=== PATIENT | male | born 1950 | race Caucasian/White ===

== ENCOUNTER 2017-07-05 13:03 | Day surgery (SDC) | payer OTHER, MEDICARE ==
[~2017-07-05] VITALS: Ht 172.7 cm; Wt 96.0 kg
[~2017-07-05 13:03] MED LIST: AMIT25 PO; AMLO5 PO; ASPI325 PO; ATOR40TA PO; Aspir 8181 MG PO; BUTASPCAFT PO; CEPH500 PO; Cytomel5 MCG PO; DICY20 PO; ESCI20; FAMO20 PO; FISH OIL 1,0001 EAC2 PO; Flovent Diskus50 MCG; GEMF600 PO; GUAIFENESIN DM1 EACH PO; HYDACE10B PO; HYDACE5 PO; HYDCHL12.5 PO; IBUP600 PO; INSULANI SC; INSULANI SUBQ; INSULANPEN SC; LEVSOD25 PO; LEVSOD50 PO; LISI20 PO; LISI5 PO; METF500C PO; METO50 PO; Mobic7.5 MG PO; NEBI10 PO; NEBI5 PO; NITR.6SL SL; Novolog Fl100 UNIT/1 INJ; OMEG1CAP30; PRAM.125 PO; RANO500T PO; ROSU10TA PO; TEMA30 PO; TESTTP TOP; VENL150ER PO; VITAMIN B12-FO1 EACH PO
[2017-07-05] MEDS ORDERED: OXYB5 PO (13:44)
[2017-07-05] MEDS ORDERED: LIDO5TO TOP (13:45)
[2017-07-05] MEDS ORDERED: Depo-Testo100 MG/1 M IM (13:46)
== END 2017-07-05 23:23 | disposition home or self-care (01) ==
LOC: MHTC 13:03
PROC: 065Q3ZZ Destruction of Left Saphenous Vein, Percutaneous Approach (ICD-10-PCS; principal; 2017-07-05)
DX: E11.51 Type 2 diabetes mellitus with diabetic peripheral angiopathy without gangrene (principal); I87.2 Venous insufficiency (chronic) (peripheral); I10 Essential (primary) hypertension
CPT/HCPCS: 36475; 82947; 99152; C1769; C1888; C1894; J1644; J2250; J3010; J7040; J7042

== ENCOUNTER 2019-01-22 23:44 | Observation (INO) | payer OTHER, MEDICARE ==
[~2019-01-22] VITALS: Ht 177.8 cm; Wt 95.7 kg
[~2019-01-22 23:44] MED LIST changes: -AMLO5 PO; -Cytomel5 MCG PO; -HYDCHL12.5 PO; -IBUP600 PO; -INSULANPEN SC; -LEVSOD50 PO; -LISI20 PO; -METF500C PO; -NITR.6SL SL; -ROSU10TA PO
[2019-01-23 00:18] LABS: BASOPHILS ABSOLUTE AUTO 0.05 K/mm3 (0.00-0.23); BASOPHILS PERCENT AUTO 1 % (0-2); EOSINOPHILS ABSOLUTE AUTO 0.39 K/mm3 (0.00-0.68); EOSINOPHILS PERCENT AUTO 5 % (0-6); Hematocrit 44.7 % (37.0-53.0); Hemoglobin 14.8 g/dL (13.5-17.5); IMMATURE GRAN ABSOLUTE AUTO 0.02 K/mm3 (0.00-0.10); IMMATURE GRAN PERCENT AUTO 0 % (0-1); LYMPHOCYTES ABSOLUTE AUTO 2.38 K/mm3 (0.84-5.20); LYMPHOCYTES PERCENT AUTO 29 % (21-46); MONOCYTES PERCENT AUTO 15 % (4-13); Mean Corpuscular HGB Conc 33.1 g/dL (31.5-36.5); Mean Corpuscular Volume 85 fL (80-100); Mean Platelet Volume 11.3 fL (9.1-12.4); NEUTROPHILS ABSOLUTE AUTO 4.08 K/mm3 (1.96-9.15); NEUTROPHILS PERCENT AUTO 50 % (41-73); Platelet Count 237 K/mm3 (150-400); RDW Coefficient Variation 14.1 % (11.7-14.2); RDW Standard Deviation 43.8 fL (35.1-46.3); Red Blood Cell Count 5.28 M/mm3 (4.30-5.90); White Blood Cell Count 8.12 K/mm3 (4.00-11.30)
[2019-01-23 00:32] LABS: Alanine Aminotransfer (ALT/SGP 42 U/L (12-78); Albumin, Blood 3.9 g/dL (3.4-5.0); Albumin/Globulin Ratio 1.1 (0.8-1.8); Alk Phos 83 U/L (50-136); Anion Gap 8 mmol/L (6-16); Aspartate Aminotrans (AST/SGOT 34 U/L (12-37); Bilirubin, Total 0.4 mg/dL (0.1-1.0); Blood Urea Nitrogen 13 mg/dL (8-24); Bun/Creatinine Ratio 13.7 (12.0-20.0); CO2, Blood 25 mmol/L (21-32); Calcium, Blood 8.7 mg/dL (8.5-10.1); Chloride, Blood 104 mmol/L (98-108); Creatinine, Blood 0.95 mg/dL (0.60-1.20); Globulin, Blood 3.6 g/dL (2.2-4.0); Glomerular Filtration Rate >60 (60-); Glucose, Blood 94 mg/dL (70-99); Potassium, Blood 3.8 mmol/L (3.5-5.5); Sodium, Blood 137 mmol/L (136-145); Total Protein, Blood 7.5 g/dL (6.4-8.2); Troponin I <0.015 ng/mL (0.000-0.040)
[2019-01-23 01:14] LABS: Free Thyroxine 0.85 ng/dL (0.70-1.60)
[2019-01-23 01:16] LABS: Thyroid Stimulating Hormone 0.634 uIU/mL (0.360-4.800)
--- NOTE | 2019-01-23 06:20 | NUR ---
01/23/19 0615 RESTING IN BED WITHOUT C/O DISCOMFORT OR S/S AT THIS TIME. VITALS AND HEART RHYTHM STABLE. TAKING ORAL FLUIDS WELL. NO VOIDING YET BUT STATES HE VOIDED IN ER BEFORE COMING TO FLOOR.
[2019-01-23 08:04] LABS: Hematocrit 45.1 % (37.0-53.0); Hemoglobin 14.7 g/dL (13.5-17.5); Mean Corpuscular HGB 27.5 pg (26.0-34.0); Mean Corpuscular HGB Conc 32.6 g/dL (31.5-36.5); Mean Corpuscular Volume 85 fL (80-100); Mean Platelet Volume 11.2 fL (9.1-12.4); Platelet Count 227 K/mm3 (150-400); RDW Standard Deviation 43.1 fL (35.1-46.3); Red Blood Cell Count 5.34 M/mm3 (4.30-5.90); White Blood Cell Count 7.19 K/mm3 (4.00-11.30)
[2019-01-23 08:21] LABS: Alanine Aminotransfer (ALT/SGP 40 U/L (12-78); Albumin, Blood 3.7 g/dL (3.4-5.0); Albumin/Globulin Ratio 1.1 (0.8-1.8); Alk Phos 60 U/L (50-136); Anion Gap 7 mmol/L (6-16); Aspartate Aminotrans (AST/SGOT 25 U/L (12-37); Bilirubin, Total 0.5 mg/dL (0.1-1.0); Blood Urea Nitrogen 11 mg/dL (8-24); Bun/Creatinine Ratio 11.6 (12.0-20.0); CO2, Blood 27 mmol/L (21-32); Calcium, Blood 8.7 mg/dL (8.5-10.1); Chloride, Blood 106 mmol/L (98-108); Creatinine, Blood 0.95 mg/dL (0.60-1.20); Globulin, Blood 3.3 g/dL (2.2-4.0); Glomerular Filtration Rate >60 (60-); Glucose, Blood 72 mg/dL (70-99); Potassium, Blood 3.8 mmol/L (3.5-5.5); Sodium, Blood 140 mmol/L (136-145)
[2019-01-23 08:23] LABS: CPK Creatine Kinase 98 U/L (39-308); Troponin I <0.015 ng/mL (0.000-0.040)
--- NOTE | 2019-01-23 14:48 | NUR ---
Upon receiving a spiritual care referral, I visited patient. I began talking with patient about his career and family then patient's doctor came in, visit cut short and no discussion on the topic of patient's spiritual health was conducted.
--- NOTE | 2019-01-23 15:02 | NUR ---
PT DISCHARGED THE PT VERBALIZED UNDERSTANDING OF THE DC INSTRUCTIONS, THE PT DECLINED TO HAVE A FOLLOW UP APPOINTMENT MADE AT THIS TIME, THE PT APPEARED TO BE BREATHING EASILY ON RA, THE PT DENIED ANY CHEST PAIN/DISCOMFORT AND SOB AT THE TIME OF DC, THE PT DECLINED WHEELCHAIR AND AMBULATED OUT STEADY ON HIS FEET ACCOMPANIED BY HIS
[2019-01-29] MEDS ORDERED: LEVSOD100 PO (21:05)
[2019-01-29] MEDS ORDERED: AMIT50 PO (21:06)
[2019-01-29] MEDS ORDERED: Zestril40 MG PO (21:06)
[2019-01-29] MEDS ORDERED: METF500 PO (21:07)
[2019-01-29] MEDS ORDERED: Cytomel5 MCG PO (21:07)
[2019-01-29] MEDS ORDERED: HYDCHL12.5 PO (21:07)
[2019-01-29] MEDS ORDERED: NITR.4SL SL (21:08)
[2019-01-29] MEDS ORDERED: INSULANPEN SC (21:08)
[2019-01-29] MEDS ORDERED: ROSU5 PO (21:09)
[2019-01-29] MEDS ORDERED: IBUP600 PO (21:09)
[2019-01-29] MEDS ORDERED: Amlodipine Bes2.5 MG PO (21:09)
[2019-01-29] MEDS ORDERED: LIDO5TO TOP (21:10)
[2019-01-29] MEDS ORDERED: Oxybutynin Chlor5 M1 PO (21:10)
[2019-01-29] MEDS ORDERED: Depo-Testos200 MG/ML IM (21:11)
[2019-01-29] MEDS ORDERED: NOVOLOG FL100 UNIT/1 SC (21:11)
[2019-01-29] MEDS ORDERED: CLOP75 PO (21:33)
== END 2019-01-23 14:38 | disposition home or self-care (01) ==
LOC: ER 23:44 → MEDS 23:45 → ENPENDDIS 01-23 14:25 → MEDS 01-23 14:38
PROVIDERS: Emergency Medicine; Physician Assistant; ADMIT Internal Medicine
DX: R07.89 Other chest pain (principal); I10 Essential (primary) hypertension; E03.9 Hypothyroidism, unspecified; E11.9 Type 2 diabetes mellitus without complications; I25.10 Atherosclerotic heart disease of native coronary artery without angina pectoris; E29.1 Testicular hypofunction; F32.9 Major depressive disorder, single episode, unspecified; Z79.899 Other long term (current) drug therapy
CPT/HCPCS: 36415; 71046; 80053; 82550; 82947; 83690; 83880; 84439; 84443; 84484; 85025; 85027; 93005; 93010; 96372; 99285-25; G0378; J1650; J7030

== ENCOUNTER 2022-06-30 06:43 | Day surgery (SDC) | payer OTHER ==
[~2022-06-30] VITALS: Ht 172.7 cm; Wt 92.0 kg
[~2022-06-30 06:43] MED LIST changes: +AMIT50 PO; +ATORVASTATIN CA80 M1 PO; +Amlodipine Bes2.5 MG PO; +CLOP75 PO; +Cytomel5 MCG PO; +Depo-Testos200 MG/ML IM; +HYDCHL12.5 PO; +IBUP600 PO; +INSULANPEN SC; +Isosorbide Mono30 MG PO; +JARDIANCE25 MG PO; +LEVSOD100 PO; +LIDO5TO TOP; +METF500 PO; +NITR.4SL SL; +NOVOLOG FL100 UNIT/1 SC; +Oxybutynin Chlor5 M1 PO; +Zestril40 MG PO
[2022-06-30] MEDS ORDERED: ANDRODERM1 EAC3 TD (07:17)
[2022-06-30] MEDS ORDERED: CLOP75 PO (11:23)
[2022-06-30] MEDS ORDERED: Aspir 8181 MG PO (11:23)
--- NOTE | 2022-06-30 16:44 | NUR ---
TROPONIN LEVEL BACK, DR AWARE. PT OKAYED TO GO HOME. PT GETTING DRESSED AT THIS TIME PER SELF. ON HER WAY IN.
--- NOTE | 2022-06-30 17:11 | NUR ---
PT DRESSED PER SELF. TR BAND REMOVED AND CLOTH DOT PLACED, SITE STABLE. ARM BOARD PLACED TO R FOREARM AND ARM SLING PLACED TO R ARM. SALINE LOCK REMOVED WITH CATHETER INTACT. WAITING FOR TO ARRIVE.
--- NOTE | 2022-06-30 17:49 | NUR ---
PT HERE, DR ESPANA IN TO TALK WITH PT AND . DISCHARGE REVIEWED WITH AND PT, BOTH VERBALIZE UNDERSTANDING OF INSTRUCTIONS. PT TO PRIVATE VEHICLE PER W/C.
[2022-07-01] MEDS ORDERED: Prinivil10 MG PO (15:35)
== END 2022-06-30 22:48 | disposition home or self-care (01) ==
LOC: MHTC 06:43
DX: I25.119 Atherosclerotic heart disease of native coronary artery with unspecified angina pectoris (principal); R06.09 Other forms of dyspnea; R53.83 Other fatigue; R07.9 Chest pain, unspecified; I47.20 Ventricular tachycardia, unspecified; I47.1 Supraventricular tachycardia; I10 Essential (primary) hypertension; Z88.8 Allergy status to other drugs, medicaments and biological substances
CPT/HCPCS: 76937; 84484; 85347; 92978; 93005; 93010; 93458; 93571; 93572; 99152; 99153; A9270; C1725; C1753; C1761; C1769; C1874; C1887; C1894; C9602; J1644; J2250; J3010; J7030; J7040; J7050; Q9967

== ENCOUNTER 2022-07-01 09:52 | Observation (INO) | payer OTHER ==
[~2022-07-01] VITALS: Ht 172.7 cm; Wt 87.0 kg
[~2022-07-01 09:52] MED LIST changes: +ANDRODERM1 EAC3 TD
[2022-07-01 10:40] LABS: BASOPHILS ABSOLUTE AUTO 0.05 K/mm3 (0.00-0.23); BASOPHILS PERCENT AUTO 1 % (0-2); EOSINOPHILS ABSOLUTE AUTO 0.21 K/mm3 (0.00-0.68); EOSINOPHILS PERCENT AUTO 3 % (0-6); Hematocrit 48.7 % (37.0-53.0); Hemoglobin 16.2 g/dL (13.5-17.5); IMMATURE GRAN ABSOLUTE AUTO 0.02 K/mm3 (0.00-0.10); IMMATURE GRAN PERCENT AUTO 0 % (0-1); LYMPHOCYTES PERCENT AUTO 19 % (21-46); MONOCYTES ABSOLUTE AUTO 0.93 K/mm3 (0.16-1.47); MONOCYTES PERCENT AUTO 12 % (4-13); Mean Corpuscular HGB 27.2 pg (26.0-34.0); Mean Corpuscular HGB Conc 33.3 g/dL (31.5-36.5); Mean Corpuscular Volume 82 fL (80-100); Mean Platelet Volume 12.2 fL (9.1-12.4); NEUTROPHILS PERCENT AUTO 66 % (41-73); Platelet Count 170 K/mm3 (150-400); RDW Coefficient Variation 14.9 % (11.7-14.2); RDW Standard Deviation 44.3 fL (35.1-46.3); Red Blood Cell Count 5.96 M/mm3 (4.30-5.90); White Blood Cell Count 8.01 K/mm3 (4.00-11.30)
[2022-07-01 11:59] LABS: Albumin, Blood 4.1 g/dL (3.4-5.0); Albumin/Globulin Ratio 1.1 (0.8-1.8); Bilirubin, Total 0.8 mg/dL (0.1-1.0); Calcium, Blood 9.3 mg/dL (8.5-10.1); Globulin, Blood 3.6 g/dL (2.2-4.0); Total Protein, Blood 7.7 g/dL (6.4-8.2)
--- NOTE | 2022-07-01 14:50 | NUR ---
Report received from ED; pt coming to PCU 6 shortly.
[2022-07-01] MEDS ORDERED: Prinivil10 MG PO (15:35)
[2022-07-01 16:42] LABS: Anti-Xa UFH, PHA Monitoring <0.10 IU/mL
--- NOTE | 2022-07-01 17:37 | NUR ---
Pt arrived to PCU at approx 1500, and was symptom free upon arrival. Alert, oriented and able to transfer from the ED stretcher to the bed in PCU 6. His Cassia at the bedside. PT is very talkative, pleasant and cooperative. Instructed to call staff with call light if he has any symptoms. Assessment and history were completed, as well as his medication list from home. Heparin gtt infusing at this time. Troponin still trending up, next check at 2300 approx 6 hours since the last one.
--- NOTE | 2022-07-01 21:23 | NUR ---
ASSUMPTION OF CARE THIS RN ASSUMED CARE OF PATIENT AT 1900. REPORT TAKEN FROM HUGO KUHN. PATIENT REPORTED MILD CHEST PAIN AT TIME OF BEDSIDE REPORT. IT WAS REPORTED BY PATIENT AND PREVIOUS RN THAT THIS CHEST PAIN STARTED AFTER PATIENT AMBULATED TO BATHROOM AND HAS SLOWLY DECREASED SINCE BUT WAS STILL LINGERING. THIS RN WENT TO PULL NITRO AND UPON RETURN PATIENT REPORTED PAIN HAD SUBSIDED AND HE DID NOT WANT THE SL NITRO AT THIS TIME. THIS RN LEFT NITRO IN ROOM FOR FURTHER CHEST PAIN. OTHERWISE NSR ON MONITOR. BP STABLE. AFEBRILE. ON RA WITH SPO2 >92%. RIGHT RADIAL SITE FULLY RECOVERED AND WITHOUT COMPLICATIONS. PATIENT ALERT AND ORIENTED AND ABLE TO MAKE NEEDS KNOWN. APPEARS TO BE RESTING COMFORTABLY AT THIS TIME WITH EQUAL CHEST RISE/FALL NOTED. BED IN LOWEST POSITION AND CALL LIGHT WITHIN REACH.
--- NOTE | 2022-07-02 04:59 | NUR ---
SHIFT SUMMARY NO ACUTE CHANGES DURING THIS SHIFT AND SINCE PREVIOUS NOTE. PATIENT CONTINUES TO DENY CHEST PAIN/PRESSURE AND SOB. VITALS STABLE. PATIENT INDEPENDENT DURING THIS SHIFT. USED URINAL AT BEDSIDE D/T PREVIOUS CHEST PAIN WITH EXERTION. SR ON MONITOR WITH PVC'S NOTED, HR 80'S. HEP GTT INFUSING AT 15U/KG/HR. PATIENT HAS BEEN NPO SINCE MIDNIGHT. BED IN LOWEST POSITION AND CALL LIGHT WITHIN REACH. THIS RN WILL CONTINUE TO MONITOR UNTIL SHIFT CHANGE AT 0700.
[2022-07-02 06:13] LABS: BASOPHILS ABSOLUTE AUTO 0.04 K/mm3 (0.00-0.23); BASOPHILS PERCENT AUTO 1 % (0-2); EOSINOPHILS ABSOLUTE AUTO 0.25 K/mm3 (0.00-0.68); EOSINOPHILS PERCENT AUTO 3 % (0-6); Hematocrit 52.2 % (37.0-53.0); Hemoglobin 17.6 g/dL (13.5-17.5); IMMATURE GRAN ABSOLUTE AUTO 0.02 K/mm3 (0.00-0.10); IMMATURE GRAN PERCENT AUTO 0 % (0-1); LYMPHOCYTES ABSOLUTE AUTO 1.63 K/mm3 (0.84-5.20); LYMPHOCYTES PERCENT AUTO 19 % (21-46); MONOCYTES ABSOLUTE AUTO 1.06 K/mm3 (0.16-1.47); MONOCYTES PERCENT AUTO 12 % (4-13); Mean Corpuscular HGB 27.1 pg (26.0-34.0); Mean Corpuscular HGB Conc 33.7 g/dL (31.5-36.5); Mean Corpuscular Volume 80 fL (80-100); NEUTROPHILS ABSOLUTE AUTO 5.57 K/mm3 (1.96-9.15); NEUTROPHILS PERCENT AUTO 65 % (41-73); Platelet Count 178 K/mm3 (150-400); RDW Coefficient Variation 16.6 % (11.7-14.2); RDW Standard Deviation 43.4 fL (35.1-46.3); Red Blood Cell Count 6.49 M/mm3 (4.30-5.90); White Blood Cell Count 8.57 K/mm3 (4.00-11.30)
[2022-07-02 06:42] LABS: Albumin, Blood 3.7 g/dL (3.4-5.0); Albumin/Globulin Ratio 1.1 (0.8-1.8); Bilirubin, Total 0.9 mg/dL (0.1-1.0); Bun/Creatinine Ratio 19.6 (12.0-20.0); Calcium, Blood 9.1 mg/dL (8.5-10.1); Creatinine, Blood 0.92 mg/dL (0.60-1.20); Globulin, Blood 3.5 g/dL (2.2-4.0); Potassium, Blood 3.7 mmol/L (3.5-5.5); Total Protein, Blood 7.2 g/dL (6.4-8.2)
--- NOTE | 2022-07-02 08:14 | NUR ---
Pt has been NPO since midnight. He reports that he had no symptoms, no shortness of breath and no discomfort over retail shift leader.
--- NOTE | 2022-07-02 10:25 | NUR ---
Heparin gtt stopped at this time.
--- NOTE | 2022-07-02 11:21 | NUR ---
Call from Briana communications field technician. Pt's PVCs have increased from 15/min to 26/min and he also had a burst of trigeminy. Call to Dr. Abdul the resident regarding this; new order to check magnesium level.
--- NOTE | 2022-07-02 11:30 | NUR ---
Pt is lying in bed, vital signs stable. He is pleasant, cheerful and talkative. No symptoms at this time, but frequent PVCs are noted on the bedside monitor. His is at the bedside.
--- NOTE | 2022-07-02 12:46 | NUR ---
Pt taken to ballistics laboratory gunsmith by RNs Edgar and Starla.
--- NOTE | 2022-07-02 12:47 | NUR ---
Pt's Cassia in pt's room at time pt left for general laborer.
--- NOTE | 2022-07-02 13:53 | NUR ---
returned from cathode ray tube assembler.
--- NOTE | 2022-07-02 14:34 | NUR ---
Pt returned from the labor contractor; report was received at the bedside from both the automatic bow maker machine tender and the RN Starla. Pt alert, oriented and without any symptoms. Vital signs stable, blood pressure initally low, but normalizing now and IVF infusing NS at 200 cc/hour per orders. Right radial site without bleeding, swelling nor evidence of hematoma. Pulse is palpable distally and fingers of the hands are pink, warm, with brisk capillary refill. Pt denies any numbness,tingling nor pain in the right arm/hand. His is helping him to set up his lunch so that he can eat now. Normal sinus rhythm noted by telemetry monitoring, with occasional PVC. Magnesium level noted normal. Pt and were both educated on current treatment plan and safety measures to protect the right arterial access site from bleeding. Verbalized understanding.
--- NOTE | 2022-07-02 15:44 | NUR ---
2 cc air removed from the TR band. Site remains unchanged from previous assessments. Pt has no symptoms. Vital signs are stable.
--- NOTE | 2022-07-02 16:21 | NUR ---
2 cc air removed from the band. Site remains without bleeding, swelling, nor signs of hematoma. Flat, soft bruise which was present upon arrival from the director labor standards and is proximal and adjacent to the TR band remains unchanged since he returned from angiogram. Fingers are still pink, warm with brisk capillary refill. Pt remains without symptoms.
--- NOTE | 2022-07-02 16:40 | NUR ---
Total of 9 cc of air has been removed from the band; site assessment remains unchanged. He continues to be symptom-free.
--- NOTE | 2022-07-02 19:37 | NUR ---
ASSUMPTION OF CARE THIS RN ASSUMED CARE OF PATIENT AT 1900. REPORT TAKEN FROM HUGO KUHN. PATIENT DENIES CHEST PAIN/PRESSURE AND SOB AT THIS TIME. RIGHT RADIAL SITE FULLY RECOVERED. TEGADERM C/D/I. NO HEMATOMA, DISCOLORATION, BLEEDING OR OOZING NOTED AT SITE. PULSES STRONG THROUGHOUT. BP STABLE WITH SBP 100-110. NSR WITH PVC'S ON MONITOR WITH HR 80'S. AFEBRILE. ON RA WITH SPO2 >92%. INDEPENDENT WITH ADL'S. ALERT AND ORIENTED. CALLING APPROPRIATELY. BED IN LOWEST POSITION AND CALL LIGHT WITHIN REACH.
[2022-07-03 04:09] LABS: Hematocrit 47.4 % (37.0-53.0); Hemoglobin 15.6 g/dL (13.5-17.5); Mean Corpuscular HGB 27.3 pg (26.0-34.0); Mean Corpuscular HGB Conc 32.9 g/dL (31.5-36.5); Mean Corpuscular Volume 83 fL (80-100); Mean Platelet Volume 11.5 fL (9.1-12.4); Platelet Count 157 K/mm3 (150-400); RDW Coefficient Variation 15.1 % (11.7-14.2); Red Blood Cell Count 5.72 M/mm3 (4.30-5.90); White Blood Cell Count 6.33 K/mm3 (4.00-11.30)
[2022-07-03 04:32] LABS: Albumin, Blood 3.3 g/dL (3.4-5.0); Anion Gap 5 mmol/L (6-16); Blood Urea Nitrogen 24 mg/dL (8-24); Bun/Creatinine Ratio 20.5 (12.0-20.0); CO2, Blood 24 mmol/L (21-32); Calcium, Blood 8.7 mg/dL (8.5-10.1); Chloride, Blood 106 mmol/L (98-108); Creatinine, Blood 1.17 mg/dL (0.60-1.20); Glomerular Filtration Rate 67 (60-); Glucose, Blood 146 mg/dL (70-99); Magnesium, Blood 2.4 mg/dL (1.6-2.4); Phosphorus, Blood 3.8 mg/dL (2.5-4.9); Potassium, Blood 4.5 mmol/L (3.5-5.5); Sodium, Blood 135 mmol/L (136-145)
--- NOTE | 2022-07-03 05:19 | NUR ---
SHIFT SUMMARY NO ACUTE CHANGES DURING THIS SHIFT. PATIENT DENIED CHEST PAIN/PRESSURE AND SOB THROUGHOUT THE SHIFT. VITALS STABLE. NSR WITH PVC'S ON THE MONITOR. RIGHT RADIAL SITE WITH TEGADERM C/D/I, ARMBOARD REMAINS IN PLACE, NO COMLICATIONS NOTED. PATIENT INDEPENDENT WITH ADLS. ALERT AND ORIENTED. BED IN LOWEST POSITION AND CALL LIGHT WITHIN REACH. THIS RN WILL CONTINUE TO MONITOR UNTIL SHIFT CHANGE AT 0700.
[2022-07-03] MEDS ORDERED: METO25 PO (12:22)
[2022-07-03] MEDS ORDERED: NITR.4SL SL (12:23)
--- NOTE | 2022-07-03 16:21 | NUR ---
DISCHARGE PT WAS DC'D THIS AFTERNOON. PT A&OX4, VSS, DENIED CP/PRESSURE. R RADIAL NO BRUISING NO BLEEDING NO HEMATOMA, PT LEFT W/ ARM BOARD IN PLACE. EDUCATION GIVEN ON RADIAL SITE PRECAUTIONS. PT'S NEW MEDICATIONS FAXED TO [facility]. HARD SCRIPT FOR 5 DAY SUPPLY METOPROLOL GIVEN TO PT TO FILL AT LOCAL PHARMACY D/T [facility] BEING CLOSED WEEKENDS. PT'S AND DOG ARRIVED TO TAKE PT HOME IN PRIVATE VEHICLE. DISCHARGE PAPERWORK GIVEN AND REVIEWED TOGETHER WITH RN.
== END 2022-07-03 13:11 | disposition home or self-care (01) ==
LOC: ER 09:52 → PCU 14:01
PROVIDERS: Emergency Medicine; Family Medicine; ADMIT Family Medicine
DX: I21.4 Non-ST elevation (NSTEMI) myocardial infarction (principal); I10 Essential (primary) hypertension; E11.9 Type 2 diabetes mellitus without complications; E23.0 Hypopituitarism; E03.9 Hypothyroidism, unspecified; I25.119 Atherosclerotic heart disease of native coronary artery with unspecified angina pectoris; F17.290 Nicotine dependence, other tobacco product, uncomplicated; Z79.899 Other long term (current) drug therapy; Z95.5 Presence of coronary angioplasty implant and graft
CPT/HCPCS: 36415; 71045; 76937; 80053; 80069; 82947; 83735; 84484; 85025; 85027; 85520; 85730; 90686; 93005; 93010; 93306; 93454; 96361; 96374; 96376; 99152; 99285-25; A9270; C1769; C1887; C1894; G0008; G0378; J1644; J1815; J2250; J3010; J7030; J7050; Q9967

== ENCOUNTER 2022-12-17 11:02 | Observation (INO) | payer OTHER ==
[~2022-12-17] VITALS: Ht 172.7 cm; Wt 89.2 kg
[~2022-12-17 11:02] MED LIST changes: +METO25 PO; +Prinivil10 MG PO
[2022-12-17 11:30] LABS: BASOPHILS ABSOLUTE AUTO 0.06 K/mm3 (0.00-0.23); BASOPHILS PERCENT AUTO 1 % (0-2); EOSINOPHILS ABSOLUTE AUTO 0.28 K/mm3 (0.00-0.68); EOSINOPHILS PERCENT AUTO 5 % (0-6); Hemoglobin 14.6 g/dL (13.5-17.5); IMMATURE GRAN ABSOLUTE AUTO 0.02 K/mm3 (0.00-0.10); IMMATURE GRAN PERCENT AUTO 0 % (0-1); LYMPHOCYTES ABSOLUTE AUTO 1.67 K/mm3 (0.84-5.20); LYMPHOCYTES PERCENT AUTO 28 % (21-46); MONOCYTES ABSOLUTE AUTO 0.68 K/mm3 (0.16-1.47); MONOCYTES PERCENT AUTO 11 % (4-13); Mean Corpuscular HGB 27.7 pg (26.0-34.0); Mean Corpuscular HGB Conc 33.2 g/dL (31.5-36.5); Mean Corpuscular Volume 84 fL (80-100); Mean Platelet Volume 12.3 fL (9.1-12.4); NEUTROPHILS ABSOLUTE AUTO 3.28 K/mm3 (1.96-9.15); NEUTROPHILS PERCENT AUTO 55 % (41-73); Platelet Count 208 K/mm3 (150-400); RDW Coefficient Variation 14.4 % (11.7-14.2); RDW Standard Deviation 43.6 fL (35.1-46.3); Red Blood Cell Count 5.27 M/mm3 (4.30-5.90); White Blood Cell Count 5.99 K/mm3 (4.00-11.30)
[2022-12-17] MEDS ORDERED: ACET325 PO (11:41)
[2022-12-17 11:43] LABS: Albumin, Blood 3.6 g/dL (3.4-5.0); Bilirubin, Total 0.7 mg/dL (0.1-1.0); Bun/Creatinine Ratio 22.7 (12.0-20.0); Calcium, Blood 8.5 mg/dL (8.5-10.1); Creatinine, Blood 0.88 mg/dL (0.60-1.20); Globulin, Blood 3.5 g/dL (2.2-4.0); Potassium, Blood 4.6 mmol/L (3.5-5.5); Total Protein, Blood 7.1 g/dL (6.4-8.2)
[2022-12-17] MEDS ORDERED: DICLOFENAC SOD100 GM TP (11:43)
[2022-12-17] MEDS ORDERED: Vitamin D1000 UNI1 PO (11:43)
[2022-12-17] MEDS ORDERED: Vitamin B-12100 MCG PO (11:43)
[2022-12-17] MEDS ORDERED: EFFIENT10 MG PO (11:44)
[2022-12-17] MEDS ORDERED: DOXE10 PO (11:44)
[2022-12-17 11:57] LABS: Prothrombin Time Results 10.5 Sec (9.7-11.5)
[2022-12-17 16:54] VITALS: BP 137/77
--- NOTE | 2022-12-17 17:25 | NUR ---
PT ADMITTED TO 308, REPORT RECEIVED FROM KELLY KUHN. PT A/O X4, PLEASANT AND COOPERATIVE ON ARRIVAL. DENIES CP, SOB. PT DENIES HAVING SMOKING, IGNITION SOURCES ON HIM. PT EDUCATED ON DANGERS OF SMOKING IN HOSPITAL. PT VU. PT MEDICATION LIST UPDATED. PT DENIES NEEDS AT THIS TIME. ICE WATER PROVIDED.
[2022-12-17 19:23] VITALS: BP 117/81
[2022-12-18 03:59] VITALS: BP 113/66
--- NOTE | 2022-12-18 04:16 | NUR ---
SHIFT SUMMARY; PT WITH BRADYCARDIA LAST NIGHT. THE PT WOULD DROP INTO THE 30'S FOR A COUPLE SECONDS BEFORE HIS HEART RATE WOULD RISE TO 50/60'S AGAIN. PT IS ASYMPTOMATIC. PT IS ONLY BRADYCARDIAC WHILE SLEEPING. OTHERWISE NO ACUTE CHANGES OVERNIGHT. THE PT IS AXO X4 AND USES THE URINAL INDEPENDENTLY. THE HAS BEEN NPO ASIDE FROM WATER AND PILLS SINCE MIDNIGHT IN ANTICIPATION FOR HIS STRESS TEST THIS AM. THE PT DENIES ANY CHEST PAIN/PRESSURE, SOB, N/V OR PAIN. CURRENTLY THE PT IS SLEEPING IN BED WITH THE BED IN THE LOWEST POSITION AND THE CALL LIGHT AT BEDSIDE. FIRE SAFETY MAINTAINED T/O THE NIGHT.
--- NOTE | 2022-12-18 05:26 | NUR ---
PT NOTES SOME GENERALIZED/MILD CHEST TIGHTNESS THIS AM. PT STATES ITS NOT TIGHT ENOUGH WHERE HE FEELS LIKE HE CANT SLEEP AND OR BREATHE, BUT THAT ITS BARELY NOTICEABLE.
[2022-12-18 08:03] VITALS: BP 117/77
[2022-12-18] MEDS ORDERED: CLOP75 PO (14:00)
[2022-12-18] MEDS ORDERED: PANT40 PO (14:03)
== END 2022-12-18 15:15 | disposition home or self-care (01) ==
LOC: ER 11:02 → MEDS 11:03 → ER 11:03 → MEDS 14:30 → ER 16:41 → MEDS 16:53
PROVIDERS: Emergency Medicine; ADMIT Family Medicine
DX: R07.89 Other chest pain (principal); I95.9 Hypotension, unspecified; I10 Essential (primary) hypertension; E11.9 Type 2 diabetes mellitus without complications; E03.9 Hypothyroidism, unspecified; I25.10 Atherosclerotic heart disease of native coronary artery without angina pectoris; Z95.5 Presence of coronary angioplasty implant and graft; Z79.890 Hormone replacement therapy; Z79.84 Long term (current) use of oral hypoglycemic drugs; Z79.82 Long term (current) use of aspirin; Z79.02 Long term (current) use of antithrombotics/antiplatelets; Z79.899 Other long term (current) drug therapy
CPT/HCPCS: 71046; 78452; 80053; 82947; 84484; 85025; 85610; 93005; 93010; 96372; 99285-25; A9270; A9500; G0378; J0280; J1650; J1815; J2785; J7030

== ENCOUNTER 2023-11-13 10:49 | Observation (INO) | payer OTHER ==
[~2023-11-13] VITALS: Ht 172.7 cm; Wt 88.0 kg
[~2023-11-13 10:49] MED LIST changes: +ACET325 PO; +DICLOFENAC SOD100 GM TP; +DOXE10 PO; +EFFIENT10 MG PO; +PANT40 PO; +Vitamin B-12100 MCG PO; +Vitamin D1000 UNI1 PO
[2023-11-13 11:09] LABS: BASOPHILS ABSOLUTE AUTO 0.05 K/mm3 (0.00-0.23); BASOPHILS PERCENT AUTO 1 % (0-2); EOSINOPHILS ABSOLUTE AUTO 0.23 K/mm3 (0.00-0.68); EOSINOPHILS PERCENT AUTO 4 % (0-6); Hematocrit 44.5 % (37.0-53.0); Hemoglobin 14.5 g/dL (13.5-17.5); IMMATURE GRAN ABSOLUTE AUTO 0.03 K/mm3 (0.00-0.10); IMMATURE GRAN PERCENT AUTO 1 % (0-1); LYMPHOCYTES PERCENT AUTO 26 % (21-46); MONOCYTES ABSOLUTE AUTO 0.66 K/mm3 (0.16-1.47); MONOCYTES PERCENT AUTO 10 % (4-13); Mean Corpuscular HGB 27.3 pg (26.0-34.0); Mean Corpuscular HGB Conc 32.6 g/dL (31.5-36.5); Mean Corpuscular Volume 84 fL (80-100); NEUTROPHILS ABSOLUTE AUTO 3.82 K/mm3 (1.96-9.15); NEUTROPHILS PERCENT AUTO 59 % (41-73); Platelet Count 202 K/mm3 (150-400); RDW Coefficient Variation 14.9 % (11.7-14.2); RDW Standard Deviation 45.2 fL (35.1-46.3); Red Blood Cell Count 5.32 M/mm3 (4.30-5.90); White Blood Cell Count 6.49 K/mm3 (4.00-11.30)
[2023-11-13 11:55] LABS: Albumin, Blood 3.9 g/dL (3.4-5.0); Albumin/Globulin Ratio 1.1 (0.8-1.8); Bilirubin, Total 0.5 mg/dL (0.1-1.0); Bun/Creatinine Ratio 20.4 (12.0-20.0); Creatinine, Blood 0.88 mg/dL (0.60-1.20); Globulin, Blood 3.6 g/dL (2.2-4.0); Potassium, Blood 4.5 mmol/L (3.5-5.5); Total Protein, Blood 7.5 g/dL (6.4-8.2)
[2023-11-13] MEDS ORDERED: ACET500 PO (14:12)
[2023-11-13] MEDS ORDERED: Voltaren100 GM TOP (14:13)
[2023-11-13] MEDS ORDERED: SYNJARDY XR 121 EAC1 PO (14:15)
[2023-11-13] MEDS ORDERED: LIOT5 PO (14:16)
[2023-11-13] MEDS ORDERED: METO25ER PO (14:18)
[2023-11-13] MEDS ORDERED: TESTOSTERONE75 G1 TD (14:21)
[2023-11-13] MEDS ORDERED: FentaNYL Citrate 50 MCG/ML 2 ML Injection IV PRN ×2 (15:25→17:20)
[2023-11-13] MEDS ORDERED: Acetaminophen 325 MG TABLET PO PRN (15:25)
[2023-11-13] MEDS ORDERED: Ondansetron HCl 2 MG / ML 2ML Vial IV PRN (15:25)
[2023-11-13] MEDS ORDERED: NS 1,000 ML IV SCH (15:25)
[2023-11-13] MEDS ORDERED: Nitroglycerin 0.4 MG SUBL SL PRN (15:25)
[2023-11-13] MEDS ORDERED: Mag Hydrox/Al Hydrox/Simeth 18 ML,Lidocaine 2% Viscous Soln 9 ML,Atropine/Scopalam/Hyos... PO PRN (15:30)
[2023-11-13] MEDS ORDERED: Enoxaparin 40 MG/0.4 ML SYR SC SCH (16:00)
[2023-11-13 16:08] LABS: International Normalized Ratio 0.96; Prothrombin Time Results 10.3 Sec (9.7-11.5)
--- NOTE | 2023-11-13 17:19 | NUR ---
PT ADMITTED FROM ED 1710, DENIES CHEST PAIN OR PRESURE. SLIGHT HEADACHE, DENIES DIZZINESS CURRENTLY. ORIENTED TO ROOM AND CALL LIGHT. SETTING UP TELE AND VSS
[2023-11-13 17:23] VITALS: BP 138/74
[2023-11-13 17:37] LABS: Free Thyroxine 0.8 ng/dL (0.70-1.60)
[2023-11-13 17:38] LABS: Thyroid Stimulating Hormone 3.21 uIU/mL (0.360-4.800)
[2023-11-13] MEDS ORDERED: Insulin Human Lispro 100 Units/ML 3ML Syringe SC SCH (17:55)
[2023-11-13 19:55] VITALS: BP 130/79
[2023-11-13] MEDS ORDERED: Doxepin HCL 10 MG CAP PO SCH (21:00)
--- NOTE | 2023-11-14 01:16 | NUR ---
GRAPHICS ARTIST REPORTED PT HAVING RUN OF PVC'S. WHEN AT BEDSIDE, PT APPEARED TO BE SLEEPING. WAS AWAKENED, DENIED PAIN OR DISTRESS. SMILING. CALL LIGHT IN REACH. WILL CONT TO MONITOR
[2023-11-14 03:50] VITALS: BP 112/58
--- NOTE | 2023-11-14 03:55 | NUR ---
REGULATORY AFFAIRS ASSISTANT SUMMARY VSS. ALERT AND ORIENTED. MED Apprats SINUS IN THE 80'S. DENIED CHEST PAIN WHEN ASKED, VOICED ONE EPISODE OF PAIN OF RIGHT SHOULDER BUT IT QUICKLY SUBSIDED. ASYMPTOMATIC SINCE. HAS BEEN RESTING QUIETLY WITH FEW INTERRUPTIONS. ABLE TO REPOSITION SELF IN BED WITHOUT ASSIST. CALL LIGHT IN REACH, RAILS UP X 2 AND BED IN LOW POSITION FOR SAFETY. IVF OF NS IN FUSING - SEE MAR FOR DETAILS. NO REPORTED VERTIGO OR NAUSEA. WILL CONTINUE TO MONITOR
[2023-11-14 05:04] LABS: BASOPHILS ABSOLUTE AUTO 0.06 K/mm3 (0.00-0.23); BASOPHILS PERCENT AUTO 1 % (0-2); EOSINOPHILS ABSOLUTE AUTO 0.26 K/mm3 (0.00-0.68); EOSINOPHILS PERCENT AUTO 4 % (0-6); Hematocrit 45.3 % (37.0-53.0); Hemoglobin 14.7 g/dL (13.5-17.5); IMMATURE GRAN ABSOLUTE AUTO 0.04 K/mm3 (0.00-0.10); IMMATURE GRAN PERCENT AUTO 1 % (0-1); LYMPHOCYTES ABSOLUTE AUTO 1.99 K/mm3 (0.84-5.20); LYMPHOCYTES PERCENT AUTO 30 % (21-46); MONOCYTES ABSOLUTE AUTO 0.72 K/mm3 (0.16-1.47); MONOCYTES PERCENT AUTO 11 % (4-13); Mean Corpuscular HGB 27.3 pg (26.0-34.0); Mean Corpuscular HGB Conc 32.5 g/dL (31.5-36.5); Mean Corpuscular Volume 84 fL (80-100); Mean Platelet Volume 12.4 fL (9.1-12.4); NEUTROPHILS ABSOLUTE AUTO 3.57 K/mm3 (1.96-9.15); NEUTROPHILS PERCENT AUTO 54 % (41-73); Platelet Count 201 K/mm3 (150-400); RDW Coefficient Variation 14.9 % (11.7-14.2); Red Blood Cell Count 5.39 M/mm3 (4.30-5.90); White Blood Cell Count 6.64 K/mm3 (4.00-11.30)
[2023-11-14 05:29] LABS: Albumin, Blood 3.6 g/dL (3.4-5.0); Bilirubin, Total 0.5 mg/dL (0.1-1.0); Bun/Creatinine Ratio 18.7 (12.0-20.0); Calcium, Blood 8.7 mg/dL (8.5-10.1); Creatinine, Blood 0.91 mg/dL (0.60-1.20); Globulin, Blood 3.6 g/dL (2.2-4.0); Potassium, Blood 4.1 mmol/L (3.5-5.5); Total Protein, Blood 7.2 g/dL (6.4-8.2)
[2023-11-14] MEDS ORDERED: Trospium Chloride 20 MG Tab PO SCH (06:00)
[2023-11-14 07:23] VITALS: BP 131/71
[2023-11-14] MEDS ORDERED: Insulin Human Lispro 100 Units/ML 3ML Syringe SC SCH (07:30)
[2023-11-14] MEDS ORDERED: Lisinopril 20 MG Tab PO SCH (09:00)
[2023-11-14] MEDS ORDERED: Liothyronine Sodium 5 MCG Tab PO SCH (09:00)
[2023-11-14] MEDS ORDERED: Atorvastatin 40 MG Tab PO SCH (09:00)
[2023-11-14] MEDS ORDERED: Isosorbide Mononitrate 60 MG TABCR PO SCH (09:00)
[2023-11-14] MEDS ORDERED: Regadenoson 0.4 MG/5 ML SYRINGE ONE (13:27)
--- NOTE | 2023-11-14 14:48 | NUR ---
LILIA FROM TELEMETRY CALLED TO INFORM PATIENT IN POLYMORPHIC V TACH. PATIENT HAVING MULTIPLE DYPHOCAL PVCs THAT ARE NOT UNIFORM. CALLED MD TO NOTIFY AND NO ANSWER. PATIENT ASSESSED, PATIENT STATES IS HAVING SOME SOB, BUT NO OTHER SYMPTOMS. DENIES CHEST PAIN AT THIS TIME. WILL CONTINUE TO MONITOR.
[2023-11-14 15:17] VITALS: BP 145/84
--- NOTE | 2023-11-14 17:40 | NUR ---
SHIFT SUMMARY PATIENT A/OX4, AT BEDSIDE MOST OF SHIFT TODAY. FRIEN AT BEDSIDE THIS AFTERNOON. PATIENT COMPLAINING OF INTERMITTENET CHEST PAIN AND CHEST TIGHTNESS, NITRO NOT ADMINISTERED DUE TO PATIENT HAVING STRESS TEST TODAY. PATIENT NPO FOR BREAKFASTA ND LUNCH DUE TO STRESS TEST. TELEMETRY IN PLACE WITH MULTIPLE EVENTS NOTED TODAY. PATIENT WITH MULTIPLE NON UNIFORM DYPHOCAL PVCs AND DIRECTOR OF FINANCIAL AID STATED POLYMORPHIC V TACH. PATIENT EDUCATED TO INFORM NURSING STAFF OF ANY SHORTNESS OF BREATH, CHEST TIGHTNESS/PAIN, OR ANY OTHER NEW SYMPTOMS. PATIENT INDEPENDENT IN ROOM WITH AMBULATION, REMAINS ON ROOM AIR. PATIENT TO HAVE CARDIOLOGY CONSULT TOMORROW. NO OTHER CONCERNS AT THIS TIME.
[2023-11-14 21:10] VITALS: BP 125/74
[2023-11-15 04:54] VITALS: BP 122/69
[2023-11-15 05:48] LABS: Bun/Creatinine Ratio 23.1 (12.0-20.0); Creatinine, Blood 0.87 mg/dL (0.60-1.20); Magnesium, Blood 2.2 mg/dL (1.6-2.4)
--- NOTE | 2023-11-15 05:54 | NUR ---
SHIFT SUMMARY: PATIENT FULLY ORIENTED, COOPERATIVE. AMBULATORY TO BATHROOM. PATIENT HAD NO COMPLAINTS OF PAIN. PATIENT SLEPT WELL THROUGH NIGHT.
[2023-11-15 07:46] VITALS: BP 134/93
--- NOTE | 2023-11-15 09:00 | NUR ---
Pt up in room ad moises, gait steady, denies dizziness at this time, a/ox4, pleasant and cooperative with care, follows commands well, lungs are clear t/l resp even and unlabored, no cough noted, hrr, tele in place running sr per moniotr, see strip, no edema noted, pppd+2, cap refill <3 sec, vs stable, afebrile, piv to rfa site is clear and patent, btx4, abd flat soft nontender, voids without diff, skin c/w/d, maew, matty, call light in reach.
[2023-11-15] MEDS ORDERED: TESTOSTERONE75 G1 TOP (11:14)
--- NOTE | 2023-11-15 12:25 | NUR ---
Pt has been discharged to home, iv removed intact, up ad moises in room, had a shower, went over discharge instructions with him, he verbalized understanding, here to take him home, no new meds to call in, left via wheelchair with price clerk and in attendence.
[2023-11-15] MEDS ORDERED: 1/2 NS 250ml250 ML (12:33)
[2023-11-15] MEDS ORDERED: METO25ER PO (12:33)
== END 2023-11-15 12:20 | disposition home or self-care (01) ==
LOC: ER 10:49 → MEDS 10:50 → ERHOLD 10:50 → MEDS 17:14
PROVIDERS: Internal Medicine; Physician Assistant; ADMIT Internal Medicine
DX: I25.118 Atherosclerotic heart disease of native coronary artery with other forms of angina pectoris (principal); R00.1 Bradycardia, unspecified; E03.9 Hypothyroidism, unspecified; E11.9 Type 2 diabetes mellitus without complications; Z79.899 Other long term (current) drug therapy; Z79.84 Long term (current) use of oral hypoglycemic drugs
CPT/HCPCS: 36415; 71046; 78452; 80048; 80053; 82947; 83735; 83880; 84439; 84443; 84484; 85025; 85610; 93005; 93010; 93017; 93246; 96372; 99285-25; A9270; A9500; G0378; J1650; J2785

== ENCOUNTER 2024-01-20 13:41 | Observation (INO) | payer OTHER ==
[~2024-01-20] VITALS: Ht 175.3 cm; Wt 87.5 kg
[~2024-01-20 13:41] MED LIST changes: +1/2 NS 250ml250 ML; +ACET500 PO; +AMIODARONE HCL400 M2 PO; +ASPI81CH PO; +LIOT5 PO; +METO25ER PO; +SYNJARDY XR 121 EAC1 PO; +TESTOSTERONE75 G1 TD; +TESTOSTERONE75 G1 TOP; +Voltaren100 GM TOP
[2024-01-20 14:28] LABS: BASOPHILS ABSOLUTE AUTO 0.03 K/mm3 (0.00-0.23); BASOPHILS PERCENT AUTO 0 % (0-2); EOSINOPHILS ABSOLUTE AUTO 0.11 K/mm3 (0.00-0.68); EOSINOPHILS PERCENT AUTO 1 % (0-6); Hematocrit 43.9 % (37.0-53.0); Hemoglobin 14.6 g/dL (13.5-17.5); IMMATURE GRAN ABSOLUTE AUTO 0.03 K/mm3 (0.00-0.10); IMMATURE GRAN PERCENT AUTO 0 % (0-1); LYMPHOCYTES ABSOLUTE AUTO 1.15 K/mm3 (0.84-5.20); LYMPHOCYTES PERCENT AUTO 15 % (21-46); MONOCYTES ABSOLUTE AUTO 0.68 K/mm3 (0.16-1.47); MONOCYTES PERCENT AUTO 9 % (4-13); Mean Corpuscular HGB 27.2 pg (26.0-34.0); Mean Corpuscular HGB Conc 33.3 g/dL (31.5-36.5); Mean Corpuscular Volume 82 fL (80-100); Mean Platelet Volume 11.3 fL (9.1-12.4); NEUTROPHILS ABSOLUTE AUTO 5.61 K/mm3 (1.96-9.15); NEUTROPHILS PERCENT AUTO 74 % (41-73); Platelet Count 218 K/mm3 (150-400); RDW Coefficient Variation 14.9 % (11.7-14.2); RDW Standard Deviation 44.5 fL (35.1-46.3); Red Blood Cell Count 5.36 M/mm3 (4.30-5.90); White Blood Cell Count 7.61 K/mm3 (4.00-11.30)
[2024-01-20 14:45] LABS: Free Thyroxine 0.9 ng/dL (0.70-1.60)
[2024-01-20 14:49] LABS: Albumin, Blood 3.9 g/dL (3.4-5.0); Albumin/Globulin Ratio 1.1 (0.8-1.8); Bilirubin, Total 0.8 mg/dL (0.1-1.0); Bun/Creatinine Ratio 19.2 (12.0-20.0); Calcium, Blood 9.1 mg/dL (8.5-10.1); Creatinine, Blood 1.04 mg/dL (0.60-1.20); Globulin, Blood 3.4 g/dL (2.2-4.0); Potassium, Blood 4.2 mmol/L (3.5-5.5); Thyroid Stimulating Hormone 5.06 uIU/mL (0.360-4.800); Total Protein, Blood 7.3 g/dL (6.4-8.2)
[2024-01-20] MEDS ORDERED: FLU VACC TS2024-25(6MOS UP)/PF 45 MCG/0.5 ML SYRINGE IM ONE (18:00)
[2024-01-20] MEDS ORDERED: Aspirin 325 MG Tab PO ONE (18:00)
[2024-01-20] MEDS ORDERED: NS 1,000 ML IV SCH (18:00)
[2024-01-20 19:55] VITALS: BP 149/86
[2024-01-20] MEDS ORDERED: Ranolazine 500 MG ER Tablet PO SCH (21:00)
[2024-01-20] MEDS ORDERED: Doxepin HCL 10 MG CAP PO SCH (21:00)
--- NOTE | 2024-01-20 23:05 | NUR ---
ADMIT NOTE 73 YR OLD MALE ADMITTED TO FLOOR FROM THE ED WITH DX OF WWEAKNESS AND POSSIBLE TIA. ALERT AND ORIENTED, BP ELEVATED OTHERWISE VSS. PERRLA. DIRECTOR HAIR EQUAL AND STRONG. DORSI AND PLANTAR FLEX EQUAL AND STRONG. ANSWERS QUESTIONS APPROPRIATELY. VOICED WAS IN TOWN WALKING, THEN FELT WEAK IN THE KNEES. CAME IN WITH CHEST APPARATUS TO MONITOR HR. PLACED OM MED TELE, SINUS. ORIENTED TO CALL LIGHT. RAILS UP X 2 AND BED ALARM ON. TOLERATES MEDS WELL. WILL DO NEURO CHECKS A DN VS Q 4 HR FOR NOW. CALL LIGHT IN REACH
[2024-01-20 23:55] VITALS: BP 148/90
--- NOTE | 2024-01-21 03:20 | NUR ---
SUPERVISOR BLOOD SUMMARY 73 YR OLD MALE ADMITTED AT SHIFT COMMENCE WITH DX OF WEAKNESS AND POSSIBLE TIA. ALERT AND ORIENTED. VOICED CAME IN POST WEAKNESS OF KNEES AND SOME UNSTEADINESS. BP ELEVATED, OTHERWISE VSS. NEURO CHECKS AND VITAL SIGNS Q 4 HRS. NEURO CHECKS ACTIVITY MANAGER, DORSI AND PLANTAR FLEXIONS EQUAL AND STRONG. NO NOTED DECREASE IN FEELING OR FACIAL DEFICEITS. (ALTHOUGH WAS REPORTED LEFT SIDE WEAKNESS PRIOR TO ADMITTANCE TO FLOOR). HAS BEEN RESTING QUIETLY WITH FEW INTERRUPTIONS. WEAK WHEN STANDING, REQUIRES STAND BY TO USE URINAL, ETC. ABLE TO REPOSITION SELF IN BED WITHOUT ASSIST. CALL LIGHT IN REACH, RAILS UP X 2, BED ALARM ON AND BED IN LOW POSITION FOR SAFETY. WILL CONT TO MONITOR
[2024-01-21 04:05] VITALS: BP 138/82
[2024-01-21] MEDS ORDERED: Trospium Chloride 20 MG Tab PO SCH (06:00)
[2024-01-21] MEDS ORDERED: Liothyronine Sodium 5 MCG Tab PO SCH (06:00)
[2024-01-21] MEDS ORDERED: Insulin Human Lispro 100 Units/ML 3ML Syringe SC SCH (07:30)
[2024-01-21 07:31] VITALS: BP 149/90
[2024-01-21] MEDS ORDERED: Clopidogrel Bisulfate 75 MG Tab PO SCH (09:00)
[2024-01-21] MEDS ORDERED: Metoprolol Succinate 25 MG TABCR PO SCH (09:00)
[2024-01-21] MEDS ORDERED: Amiodarone HCl 200 MG Tab PO SCH (09:00)
[2024-01-21] MEDS ORDERED: Lisinopril 20 MG Tab PO SCH (09:00)
[2024-01-21] MEDS ORDERED: Enoxaparin 40 MG/0.4 ML SYR SC SCH (09:00)
[2024-01-21] MEDS ORDERED: Isosorbide Mononitrate 30 MG TABCR PO SCH (09:00)
[2024-01-21] MEDS ORDERED: Aspirin 81 MG Chew PO SCH (09:00)
[2024-01-21] MEDS ORDERED: Atorvastatin 40 MG Tab PO SCH (09:00)
[2024-01-21 15:29] VITALS: BP 124/89
--- NOTE | 2024-01-21 15:56 | NUR ---
REQUESTED TO DC SCDs D/T MARELY KIMBLE. PATIENT AMBULATING, DOING EXERCISES AND ACCEPTING LOVENOX INJECTIONS.
[2024-01-21] MEDS ORDERED: ASPI81CH PO (16:56)
[2024-01-21 17:32] VITALS: BP 117/94
[2024-01-21 18:37] VITALS: BP 117/94
--- NOTE | 2024-01-21 18:47 | NUR ---
FALL PATIENT WAS USING BATHROOM ONE LAST TIME PRIOR TO DISCHARGING. HE WAS TURNING TO THE SINK TO WASH HIS HANDS, HIS LEFT KNEE GAVE OUT ON HIM AND HE FELL TO THE GROUND. NO C/O PAIN OR DISCOMFORT. LEFT-SIDED WEAKNESS PRIOR TO FALL RELATED TO TIA (FOR WHICH HE WAS ADMITTED) SAME PRIOR TO FALL. VICTOR HUGO AND ISA RUSH, ASSISTED HIM UP AND INTO WHEELCHAIR. DR. BEATTY TO BEDSIDE TO DISCUSS WITH FAMILY AND DECISION WAS MADE FOR PATIENT TO STAY ANOTHER NIGHT TO MONITOR FOR FURTHER CHANGES PATIENT DID HAVE SOME C/O DIZZINESS.
--- NOTE | 2024-01-21 19:15 | NUR ---
PATIENT A&OX4, PLEASANT AND COOPERATIVE. WEARS LIFEVEST, PATIENT STATES NEW BATTERY IN PLACE. ON TELE, SINUS TACH 108 AT 1306. PATIENT AMBULATES SBAX1 TO BATHROOM, ALSO USES URINAL. PATIENT STATES HE IS WOBBLY, HAS AN UNSTEADY GAIT. PATIENT HAD MRI. PATIENT WAS TO D/C, FELL RIGHT BEFORE D/C IN BATHROOM. D/T D/C ORDERS NO IV ACCESS. PATIENT TO STAY ANOTHER NIGHT FOR OBSERVATION PER DOCTOR RECOMMENDATION. NO INJURIES FROM FALL, PATIENT STATED HE FELT LIGHTHEADED AFTER FALLING. NEURO CHECKS WNL. BED IN LOW POSITION AND CALL LIGHT WITHIN REACH.
[2024-01-21 20:16] VITALS: BP 115/66
[2024-01-21] MEDS ORDERED: Melatonin 5 MG Tablet PO PRN (22:15)
[2024-01-22 03:26] VITALS: BP 98/63
--- NOTE | 2024-01-22 04:43 | NUR ---
MARKETING PROJECT COORDINATOR SUMMARY PT A/OX4. NO ACUTE CHANGES. PT WAS TO DISCHARGE BUT HAD FALL AT END OF DAY SHIFT. PT KEPT ONE MORE NIGHT. PT DENIES PAIN. SBA TO THE BATHROOM. PT PLEASANT AND COOPERATIVE. NEW IV PLACED TO LEFT FOREARM. PT REMAINS ON TELE; NOT ALERTS. NORMAL SINUS IN THE 80'S. CALL LIGHT ACCESSIBLE.
[2024-01-22 05:24] LABS: Hematocrit 42.6 % (37.0-53.0); Hemoglobin 14.1 g/dL (13.5-17.5); Mean Corpuscular HGB 27.2 pg (26.0-34.0); Mean Corpuscular HGB Conc 33.1 g/dL (31.5-36.5); Mean Corpuscular Volume 82 fL (80-100); Mean Platelet Volume 11.1 fL (9.1-12.4); Platelet Count 199 K/mm3 (150-400); RDW Coefficient Variation 15.2 % (11.7-14.2); RDW Standard Deviation 45.7 fL (35.1-46.3); Red Blood Cell Count 5.18 M/mm3 (4.30-5.90); White Blood Cell Count 7.34 K/mm3 (4.00-11.30)
[2024-01-22 05:56] LABS: Bun/Creatinine Ratio 22.3 (12.0-20.0); Calcium, Blood 8.7 mg/dL (8.5-10.1); Creatinine, Blood 0.99 mg/dL (0.60-1.20)
[2024-01-22 07:30] VITALS: BP 122/76
[2024-01-22] MEDS ORDERED: AmLODIPine Besylate 5 MG Tab PO SCH (09:00)
[2024-01-22 10:48] VITALS: BP 126/84
[2024-01-22 10:50] VITALS: BP 111/78
[2024-01-22 10:51] VITALS: BP 109/73
== END 2024-01-22 14:43 | disposition home or self-care (01) ==
LOC: ER 13:41 → MEDS 13:42 → ENPENDDIS 01-21 18:43 → MEDS 01-22 14:43
PROVIDERS: Student in an Organized Health Care Education/Training Program; ADMIT Hospitalist
DX: G45.9 Transient cerebral ischemic attack, unspecified (principal); I25.10 Atherosclerotic heart disease of native coronary artery without angina pectoris; E11.9 Type 2 diabetes mellitus without complications; I10 Essential (primary) hypertension; E03.9 Hypothyroidism, unspecified; I47.20 Ventricular tachycardia, unspecified; Z11.52 Encounter for screening for COVID-19; Z79.02 Long term (current) use of antithrombotics/antiplatelets; Z79.899 Other long term (current) drug therapy; Z79.890 Hormone replacement therapy; Z95.5 Presence of coronary angioplasty implant and graft
CPT/HCPCS: 36415; 70450; 70496; 70498; 70551; 71045; 80048; 80053; 82947; 83735; 84439; 84443; 84484; 85025; 85027; 93005; 93010; 96372; 97110; 97116; 97161; 99285-25; A9270; G0378; J1650; J7030; Q9967

== ENCOUNTER 2024-11-30 06:50 | Day surgery (SDC) | payer OTHER ==
[~2024-11-30] VITALS: Ht 170.2 cm; Wt 85.6 kg
[~2024-11-30 06:50] MED LIST changes: +B-12500 MC2 PO; +IBUP200 PO; +ISOSORBIDE MONO60 MG PO; -Isosorbide Mono30 MG PO; +MELO7.5 PO; +SEMAGLUTID0.25 MG/0.
[2024-11-30 07:43] VITALS: BP 141/83
--- NOTE | 2024-11-30 08:15 | NUR ---
ADMIT NOTE A&OX4, BREATHING RA, NO COMPLAINTS. Ambulatory in Day Surgery Patient confirms NPO status and agrees with scheduled surgery. Pre-Op teaching done. Pt verbalizes understanding. Patient States Post-Procedure ride home has been arranged.
--- NOTE | 2024-11-30 10:19 | NUR ---
11/30/24 1019 Reyna Anderson History, Chart, Medications and Allergies reviewed before start of procedure. MONITOR INTACT WITH CONTINUOUS PULSE OXIMETRY, CONTINUOUS END TITAL CO2, 3-LEAD EKG AND INTERMITTENT BLOOD PRESSURE. 3-LEAD EKG REVIEWED WITH PHYSICIAN PRIOR TO START OF PROCEDURE. SEE ANESTHESIA RECORD. O2 VIA POM INTACT THROUGHOUT SEDATION/PROCEDURE.
[2024-11-30 10:48] VITALS: BP 100/74
--- NOTE | 2024-11-30 11:11 | NUR ---
REVIEWED DISCHARGE INSTRUCTIONS WITH PT AND SPOUSE.BOTH VERBALIZE UNDERSTANDING. DISCHARGED TO HOME-OUT VIA WHEELCHAIR WITH BELONGINGS AND INSTRUCTIONS ON HAND.
== END 2024-11-30 11:11 | disposition home or self-care (01) ==
LOC: ORSCMMR 06:50 → ORD 09:00 → ORSCMMR 11:11
PROVIDERS: Surgery
PROC: 0DBL8ZX Excision of Transverse Colon, Via Natural or Artificial Opening Endoscopic, Diagnostic (ICD-10-PCS; principal; 2024-11-30 09:00)
PROC: 0DBK8ZX Excision of Ascending Colon, Via Natural or Artificial Opening Endoscopic, Diagnostic (ICD-10-PCS; principal; 2024-11-30 09:00)
PROC: 0DBM8ZX Excision of Descending Colon, Via Natural or Artificial Opening Endoscopic, Diagnostic (ICD-10-PCS; principal; 2024-11-30 09:00)
DX: Z12.11 Encounter for screening for malignant neoplasm of colon (principal); Z86.0100 Personal history of colon polyps, unspecified; K57.30 Diverticulosis of large intestine without perforation or abscess without bleeding; D12.3 Benign neoplasm of transverse colon; K63.5 Polyp of colon; K52.9 Noninfective gastroenteritis and colitis, unspecified; K64.8 Other hemorrhoids; E11.9 Type 2 diabetes mellitus without complications; I10 Essential (primary) hypertension; E03.9 Hypothyroidism, unspecified; E78.5 Hyperlipidemia, unspecified; I25.10 Atherosclerotic heart disease of native coronary artery without angina pectoris; Z95.810 Presence of automatic (implantable) cardiac defibrillator; G47.00 Insomnia, unspecified; Z87.891 Personal history of nicotine dependence; Z79.899 Other long term (current) drug therapy
CPT/HCPCS: 82947; 88305; J2704; J7120